=== PATIENT | male | born 1965 | race Caucasian/White ===

== ENCOUNTER 2016-08-29 16:43 | Emergency (ER) | payer SELFPAY ==
--- NOTE | 2016-08-29 17:01 | RADIOLOGY REPORT (SQ) ---
EXAM DESCRIPTION: CHEST SINGLE VIEW COMPLETED DATE/TIME: 08/29/2016 4:53 pm REASON FOR STUDY: bed 19 stroke alert COMPARISON: 04/04/2015. EXAM PARAMETERS: NUMBER OF VIEWS: One view. TECHNIQUE: Single frontal radiographic view of the chest acquired. RADIATION DOSE: NA LIMITATIONS: None. FINDINGS: LUNGS AND PLEURA: No opacities, masses or pneumothorax. No pleural effusion. MEDIASTINUM AND HILAR STRUCTURES: No masses. Contour normal. HEART AND VASCULAR STRUCTURES: Heart normal in size. Normal vasculature. BONES: No acute findings. HARDWARE: None in the chest. OTHER: No other significant finding. IMPRESSION: NO ACUTE RADIOGRAPHIC FINDING IN THE CHEST. TECHNICAL DOCUMENTATION: JOB ID: [id number]
--- NOTE | 2016-08-29 17:05 | RADIOLOGY REPORT (SQ) ---
EXAM DESCRIPTION: CT HEAD WITHOUT COMPLETED DATE/TIME: 08/29/2016 4:53 pm REASON FOR STUDY: bed 19 stroke alert COMPARISON: 04/04/2015. TECHNIQUE: Axial images acquired through the brain without intravenous contrast. Images reviewed wi th bone, brain and subdural windows. Images stored on PACS. All CT scanners at this facility use dose modulation, iterative reconstruction, and/or weight based d osing when appropriate to reduce radiation dose to as low as reasonably achievable (ALARA). [facility]: Dose Right [facility]: CareDose [facility]: Dose Right [facility]: Teradose 4D [facility]: Smart All Together Now RADIATION DOSE: mGy. LIMITATIONS: None. FINDINGS: VENTRICLES: Normal size and contour. CEREBRUM: No masses. No hemorrhage. No midline shift. Normal flores/white matter differentiation. N o evidence for acute infarction. CEREBELLUM: No masses. No hemorrhage. No alteration of density. No evidence for acute infarction. EXTRAAXIAL SPACES: No fluid collections. No masses. ORBITS AND GLOBE: No intra- or extraconal masses. Normal contour of globe without masses. CALVARIUM: No fracture. PARANASAL SINUSES: No fluid or mucosal thickening. SOFT TISSUES: No mass or hematoma. OTHER: No other significant finding. IMPRESSION: NORMAL BRAIN CT WITHOUT CONTRAST. COMMENT: Pertinent positive or negative findings of the imaging study reported as a CRITICAL EXAM adela DRUMMOND at16:59 on 08/29/2016. Category of Critical Exam: Stroke protocol. TECHNICAL DOCUMENTATION: JOB ID: [id number] Quality ID # [id number]: Final reports with documentation of one or more dose reduction techniques (e.g., Au tomated exposure control, adjustment of the mA and/or kV according to patient size, use of iterative reconstruction technique) 2010 [employer]- All Rights Reserved
[2016-08-29 17:14] LABS: ABSOLUTE BASOPHILS # (AUTO) 0.1 10^3/uL (0.0-0.2); ABSOLUTE EOSINOPHILS # (AUTO) 0.1 10^3/uL (0.0-0.6); ABSOLUTE LYMPHOCYTES (AUTO) 1.5 10^3/uL (0.5-4.7); ABSOLUTE MONOCYTES (AUTO) 1.2 10^3/uL (0.1-1.4); ABSOLUTE NEUT (AUTO) 14.2 10^3/uL (1.7-8.2); BASOPHILS % (AUTO) 0.7 % (0-2); EOSINOPHILS % (AUTO) 0.5 % (0-6); HEMATOCRIT 45.8 % (37.9-51.0); HEMOGLOBIN 15.6 g/dL (13.5-17.0); LYMPHOCYTES % (AUTO) 8.8 % (13-45); MEAN CORPUSCULAR HEMOGLOBIN 32.4 pg (27.0-33.4); MEAN CORPUSCULAR VOLUME 96 fl (80-97); MONOCYTES % (AUTO) 6.8 % (3-13); SEGMENTED NEUTROPHILS % (AUTO) 83.2 % (42-78)
[2016-08-29 17:16] LABS: PROTHROMBIN TIME 13.4 SEC (11.4-15.4)
[2016-08-29 17:17] LABS: PARTIAL THROMBOPLASTIN TIME 27.5 SEC (23.5-35.8)
--- NOTE | 2016-08-29 17:21 | ER Document Report ---
ED Neuro Symptoms/Deficit - General Stated Complaint: POSSIBLE STROKE Time Seen by Provider: 08/29/16 17:15 Notes: EMS was called to this residence for a patient who had passed out. We are not sure what exactly happened because there were no witnesses to the actual event. It occurred about 3:30 PM. EMS arrived on the scene and found the patient sitting on the floor in the kitchen of the house with a fan on him. The family had dragged him into the house. They were told that the patient had been outside working with another person from about noon until the episode occurred. Call came into EMS at 3:45. Patient has been nonverbal, although awake and looking around, and was noted to have weakness of the right arm and right leg. EMS described the patient as drooling. He was noted to be tachycardic at a heart rate of 130 taken by EMS at the scene. Talking with the , patient has a history of depression and bipolar disorder. He supposed to be on medications, but has not been taking them. He also has a history of seizures, the last one being about 6 months ago. He is not on any medicines for this disorder either. says the patient has been very depressed and has essentially not left his house for over 2 years. He is not accustomed to being out in the current hot weather. 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 TRAVEL OUTSIDE OF THE [place] IN LAST 30 DAYS: No - Related Data Allergies/Adverse Reactions: haloperidol [From Haldol] Allergy (Verified 04/04/15 11:32) haloperidol lactate [From Haldol] Allergy (Verified 04/04/15 11:32) Penicillins Allergy (Verified 04/04/15 11:32) acetaminophen [From Vicodin] Adverse Reaction (Verified 04/04/15 11:32) hydrocodone bitartrate [From Vicodin] Adverse Reaction (Verified 04/04/15 11:32) propoxyphene napsylate [From Darvocet-N 100] Adverse Reaction (Verified 11:32) Past Medical History - Social History Smoking Status: Unknown if Ever Smoked Family History: Reviewed & Not Pertinent - Past Medical History Cardiac Medical History: Denies: Hx Hypercholesterolemia, Hx Hypertension Pulmonary Medical History: Reports: Hx COPD Neurological Medical History: Reports: Hx Seizures - Currently on no medications. Endocrine Medical History: Denies: Hx Diabetes Mellitus Type 1, Hx Diabetes Mellitus Type 2 Psychiatric Medical History: Reports: Hx Bipolar Disorder - On no current meds. , Hx Depression - On no current meds. Past Surgical History: Reports: Hx Appendectomy, Hx Testicular Surgery - Right removal - Immunizations Hx Diphtheria, Pertussis, Tetanus Vaccination: Yes Review of Systems - Review of Systems -: Yes ROS unobtainable due to patient's medical condition - Patient is not able to answer any questions. Physical Exam - Vital signs Vitals: Temp 97.3 F 08/29/16 17:58 Interpretation: Normal - Notes Notes: PHYSICAL EXAMINATION: GENERAL: Well-appearing, in no acute distress. Eyes open and appears to be awake, but does not follow commands and does not speak. HEAD: Atraumatic, normocephalic. Atraumatic. EYES: Pupils equal round and reactive to light, extraocular movements intact. ENT: oropharynx clear without exudates. Moist mucous membranes. NECK: Normal range of motion, supple. No carotid bruits heard. LUNGS: Breath sounds clear and equal bilaterally. HEART: Regular rate and rhythm without murmurs. ABDOMEN: Soft, nontender. No guarding or rebound. BACK: No tenderness throughout entire back. EXTREMITIES: Normal range of motion without pain. NEUROLOGICAL: Patient is awake continues to look around the room. Moving his right leg but barely moving his right arm upon arrival. However patient was soon moving the right arm spontaneously but more likely when he would reach over with the left arm and lift the right arm and hand up. He keeps pulling at the right hand. Does not speak initially. No facial asymmetry. SKIN: Warm, dry, no rashes. Course - Re-evaluation Re-evalutation: 08/29/16 17:22 Based upon the patient's history and his physical findings and condition, I am not certain if he is recovering from a seizure or if he is exhibiting symptoms following a stroke or if he became overheated. At this time, I do not feel that it is safe and stephen to give thrombolytics. Will observe for change in symptoms. 08/29/16 18:15 patient's mental status showed some gradual steady improvement, but it was not what I would define as rapid improvement. He began to mumble and follow commands such as opening his mouth and trying to stick his tongue out. No evidence of tongue trauma. At this point, patient's symptoms have shown gradual improvement, but not rapid improvement. I called cardiac connection at [facility] and spoke with Dr. Echeverria. We were of the opinion that the patient probably deserves thrombolytics at this point. 18:30 went into the patient's room to discuss this option and the patient is still not able to answer questions or follow all commands so I do not think he can participate in the decision making. At the same time, as I entered the patient's room to discuss thrombolytics, patient's began to complain of severe pains in her sides. She complained of being soaking wet and in fact, was very diaphoretic She was put on a stretcher and her blood pressure was taken and systolic was in the 70s. An IV line was established and patient was taken into trauma to for care by another provider. Obviously, the is not able to make a judgment or concentrate on the pros and cons of thrombolytics. I called back and spoke again with Dr. Echeverria who pointed out that the ultimate decision was that of the primary provider, in this case or, and I opted to go ahead and give the patient thrombolytics and Dr. Echeverria accepted the patient in transfer to [facility]. Transportation by helicopter will be arranged. 08/29/16 19:18 - Vital Signs Vital signs: Temp Pulse Resp BP Pulse Ox 97.3 F 08/29/16 17:58 - Laboratory Result Diagrams: 08/29/16 17:05 08/29/16 17:05 Laboratory results interpreted by me: 08/29/16 08/29/16 08/29/16 16:59 17:05 17:05 WBC 17.0 H Seg Neutrophils % 83.2 H Lymphocytes % 8.8 L Absolute Neutrophils 14.2 H Glucose 120 H POC Glucose 127 H AST 67 H ALT 95 H Creatine Kinase 38 L - Diagnostic Test Radiology reviewed: Image reviewed, Reports reviewed - CT scan of the brain was normal. - EKG Interpretation by Me EKG shows normal: Sinus rhythm Rate: Normal Rhythm: NSR Additional EKG results interpreted by me: 08/29/16 19:19 EKG is normal. Critical Care Note - Critical Care Note Total time excluding time spent on procedures (mins): 60 Discharge - Discharge Clinical Impression: Stroke Condition: Stable Disposition: [facility]
[2016-08-29 17:35] LABS: ALANINE AMINOTRANSFERASE 95 U/L (21-72); ALBUMIN 4.5 g/dL (3.5-5.0); ALKALINE PHOSPHATASE 89 U/L (38-126); ANION GAP 12 (5-19); ASPARTATE AMINO TRANSFERASE 67 U/L (17-59); BILIRUBIN,DIRECT 0.4 mg/dL (0.0-0.4); BILIRUBIN,TOTAL 0.7 mg/dL (0.2-1.3); BLOOD UREA NITROGEN 10 mg/dL (7-20); CALCIUM 9.9 mg/dL (8.4-10.2); CARBON DIOXIDE 23 mmol/L (22-30); CHLORIDE 105 mmol/L (98-107); CREATINE KINASE 38 U/L (55-170); CREATININE RESULT 1.03 mg/dL (0.52-1.25); GLUCOSE 120 mg/dL (75-110); POTASSIUM 3.9 mmol/L (3.6-5.0); SODIUM 140.3 mmol/L (137-145)
[2016-08-29 17:46] LABS: CREATINE KINASE MB 0.34 ng/mL (<4.55)
[2016-08-29 17:47] LABS: TROPONIN I < 0.012 ng/mL
[2016-08-29] MEDS ORDERED: ALTEPLASE INJ 100 MG VIAL ONE (19:05)
[2016-08-29 20:00] VITALS: BP 164/105
--- NOTE | 2016-08-30 12:49 | EKG REPORT ---
SEVERITY:- ABNORMAL ECG - SINUS TACHYCARDIA CONSIDER ANTEROSEPTAL INFARCT BORDERLINE PROLONGED QT INTERVAL : Confirmed by: Antonette Mccarty MD 30-Aug-2016 12:48:51
== END 2016-08-29 19:15 | disposition short-term general hospital (02) ==
LOC: ER 16:43
DX: I63.9 Cerebral infarction, unspecified (principal); G81.91 Hemiplegia, unspecified affecting right dominant side; J44.9 Chronic obstructive pulmonary disease, unspecified; F31.9 Bipolar disorder, unspecified; T50.906A Underdosing of unspecified drugs, medicaments and biological substances, initial encounter; Z91.14 Patient's other noncompliance with medication regimen; Z88.8 Allergy status to other drugs, medicaments and biological substances; Z88.0 Allergy status to penicillin
CPT/HCPCS: 93005; 99291; 36415; 82553; 82962; 82550; 85025; 85610; 85730; 80053; 84484; 71010; 70450; 93010; J2997